=== PATIENT | male | born 1965 | race Caucasian/White ===

== ENCOUNTER 2022-06-26 14:37 | Emergency (ER) | payer BC ==
[~2022-06-26] VITALS: Ht 172.7 cm; Wt 73.5 kg
[2022-06-26 14:58] VITALS: BP 132/78
== END 2022-06-26 16:17 | disposition home or self-care (01) ==
LOC: ER 14:39
DX: S61.211A Laceration without foreign body of left index finger without damage to nail, initial encounter (principal); I10 Essential (primary) hypertension; E78.5 Hyperlipidemia, unspecified; W26.0XXA Contact with knife, initial encounter; Y93.89 Activity, other specified; Y92.89 Other specified places as the place of occurrence of the external cause; Y99.8 Other external cause status